=== PATIENT | female | born 1955 | race Caucasian/White ===

== ENCOUNTER 2018-05-31 16:05 | Emergency (ER) | payer MEDICAID ==
[~2018-05-31] VITALS: Ht 165.1 cm; Wt 117.0 kg
[2018-05-31 16:15] VITALS: BP 122/71; Ht 165.1 cm; Wt 117.0 kg
== END 2018-05-31 19:43 | disposition left against medical advice (07) ==
LOC: ED 16:05
DX: Z53.21 Procedure and treatment not carried out due to patient leaving prior to being seen by health care provider (principal)